=== PATIENT | male | born 1985 | race Caucasian/White ===

== ENCOUNTER 2021-04-29 07:57 | Day surgery (SDC) | payer OTHER ==
[~2021-04-29 07:57] MED LIST: Acetaminophen 500 MG Tab PO ONE; Bupivacaine 0.5% 50 ML MDV ONE; Bupivacaine 0.5%/EPINEPHrine 1:200,000 50 ML MDV ONE; Lidocaine 1% with EPINEPHrine 1:100,000 50 ML MDV ONE
[2021-04-29] MEDS ORDERED: Dextrose 5%-Lactated Ringers 1,000 ML IV SCH (09:30)
[2021-04-29] MEDS ORDERED: fentaNYL 100 MCG/2 ML SDV ONE ×2 (09:34→09:49)
[2021-04-29] MEDS ORDERED: Propofol 200 MG/20 ML SDV ONE (09:35)
[2021-04-29] MEDS ORDERED: Midazolam 1 MG/ML 2 ML SDV ONE ×2 (09:35→09:49)
[2021-04-29] MEDS ORDERED: ceFAZolin 2 GM in Premix Bag 1 BAG IV ONE (10:00)
[2021-04-29] MEDS ORDERED: Ketorolac 30 MG/ML SDV ONE (10:19)
== END 2021-04-29 12:54 | disposition home or self-care (01) ==
LOC: JP.SDS 07:57
PROVIDERS: ATTEND Surgery
DX: K40.30 Unilateral inguinal hernia, with obstruction, without gangrene, not specified as recurrent (principal); F17.220 Nicotine dependence, chewing tobacco, uncomplicated
CPT/HCPCS: 88302; C1781; J1885; J2250; J2704; J3010; J3490; J7121

== ENCOUNTER 2024-01-18 07:52 | Day surgery (SDC) | payer OTHER ==
[2024-01-18] MEDS ORDERED: Propofol 200 MG/20 ML SDV ONE (09:25)
[2024-01-18] MEDS ORDERED: Midazolam 1 MG/ML 2 ML SDV ONE (09:25)
[2024-01-18] MEDS ORDERED: fentaNYL 100 MCG/2 ML SDV ONE (09:25)
[2024-01-18] MEDS: Lactated Ringers 1,000 ML IV SCH (09:41)
== END 2024-01-18 11:25 | disposition home or self-care (01) ==
LOC: JP.SDS 07:52
PROVIDERS: ATTEND Surgery
DX: K25.9 Gastric ulcer, unspecified as acute or chronic, without hemorrhage or perforation (principal); I85.00 Esophageal varices without bleeding; K29.70 Gastritis, unspecified, without bleeding
CPT/HCPCS: 00731; 43239; 88305; 88342; J2250; J2704; J3010; J7120

== ENCOUNTER 2024-04-25 07:04 | Day surgery (SDC) | payer OTHER ==
[2024-04-25 07:27] LABS: MEAN CORPUSCULAR HEMOGLOBIN 32.7 pg (31.6-35.5); MEAN CORPUSCULAR HGB CONC 34.2 g/dL (31.6-35.5); MEAN CORPUSCULAR VOLUME 95.7 fL (81.4-99.0); RED BLOOD CELL COUNT 3.97 M/uL (4.14-5.76); WHITE BLOOD CELL COUNT,WBC 2.8 K/uL (3.2-11.0)
[2024-04-25] MEDS ORDERED: fentaNYL 100 MCG/2 ML SDV ONE (07:29)
[2024-04-25] MEDS ORDERED: Midazolam 1 MG/ML 2 ML SDV ONE (07:29)
[2024-04-25] MEDS ORDERED: Propofol 200 MG/20 ML SDV ONE (07:29)
[2024-04-25] MEDS ORDERED: Bupivacaine 0.5% 30 ML SDV ONE (07:31)
[2024-04-25] MEDS: Nozin Nasal Sanitizer NASBOTH ONE (07:39)
[2024-04-25 07:40] LABS: ANION GAP 5.5 mmol/L (5.0-14.0); CREATININE 0.9 mg/dL (0.8-1.3); EST CRCL DRUG DOSING (CG) 112.38 mL/min; POTASSIUM,K 4.4 mmol/L (3.6-5.2)
[2024-04-25] MEDS: Lactated Ringers 1,000 ML IV SCH (07:55)
[2024-04-25] MEDS: ceFAZolin 2 GM in Premix Bag 1 BAG IV ONE (08:33)
[2024-04-25] MEDS ORDERED: Neostigmine Methylsulfate 10 MG/10 ML MDV ONE (08:37)
[2024-04-25] MEDS ORDERED: Rocuronium 50 MG/5 ML Vial ONE (08:37)
[2024-04-25] MEDS ORDERED: fentaNYL 250 MCG/5 ML SDV ONE (08:37)
[2024-04-25] MEDS ORDERED: Dexamethasone 4 MG/ML SDV ONE (08:37)
[2024-04-25] MEDS ORDERED: Glycopyrrolate 0.2 MG/ML 5 ML MDV ONE (08:37)
[2024-04-25] MEDS ORDERED: Ondansetron 4 MG/2 ML SDV ONE (08:37)
[2024-04-25] MEDS: Bupivacaine 0.5% 50 ML MDV ONE (09:28)
[2024-04-25] MEDS ORDERED: Ketorolac 30 MG/ML SDV ONE (09:33)
[2024-04-25] MEDS ORDERED: Acetaminophen/oxyCODONE 325-5 MG Tab PO PRN (10:56)
[2024-04-25] MEDS: oxyCODONE 5 MG Tab PO ONE (11:21)
== END 2024-04-25 12:00 | disposition home or self-care (01) ==
LOC: JP.SDS 07:04
PROVIDERS: ATTEND Specialist
DX: M75.101 Unspecified rotator cuff tear or rupture of right shoulder, not specified as traumatic (principal)
CPT/HCPCS: 29827; 36415; 80048; 85027; A9270; C1713; J0665; J0690; J1100; J1596; J1885; J2250; J2405; J2704; J2710; J3010; J7120; 01630-QZ; J3490